=== PATIENT | male | born 1965 | race Caucasian/White ===

== ENCOUNTER 2017-01-14 22:36 | Observation (INO) ==
[2017-01-14] MEDS ORDERED: 0.9 % Sodium Chloride 1,000 ML IVC ONE (23:53)
[2017-01-15 00:36] LABS: Basophils % 0.3 %; Hematocrit 37.9 % (37.5-50.1); Hemoglobin 13.9 g/dL (12.9-16.9); Immature Granulocytes % 3.6 % (0-4); Lymphocytes # 1.4 K/mcL (0.6-4.6); Lymphocytes % 10.2 %; Mean Corpuscular HGB Conc 36.7 g/dL (31.6-35.5); Mean Corpuscular Hemoglobin 29.4 pg (28.0-33.3); Mean Corpuscular Volume 80.3 fL (83.0-100.0); Mean Platelet Volume 10.4 fL (9.4-12.4); Monocytes # 1.2 K/mcL (0.0-1.3); Monocytes % 8.6 %; Neutrophils # 10.7 K/mcL (1.6-8.9); Platelet Count 143 K/mcL (140-400); Red Blood Count 4.72 M/mcL (4.19-5.50); Red Cell Distribution Width 13.5 % (11.5-14.5); Segmented Neutrophils % 77.3 %
[2017-01-15 00:46] LABS: Alanine Aminotransferase 45 Units/L (0-55); Albumin 2.8 g/dL (3.5-5.0); Alkaline Phosphatase 90 Units/L (38-126); Aspartate Amino Transferase 22 Units/L (5-34); BUN/Creatinine Ratio 41 (6-26); Bilirubin,Total 0.4 mg/dL (0.2-1.2); Blood Urea Nitrogen 27 mg/dL (8-26); Calcium 8.8 mg/dL (8.6-10.8); Carbon Dioxide 22 mEq/L (19-29); Chloride 90 mEq/L (98-109); Globulin 2.9 g/dL (2.4-3.5); Glucose 240 mg/dL (70-99); Osmolality,Calculated 273 (280-300); Potassium 4.3 mEq/L (3.5-4.5); Sodium 125 mEq/L (136-145); Total Protein 5.7 g/dL (6.0-8.3); eGFR For African Americans > 60 (> 60); eGFR For Non-African Americans > 60 (> 60)
[2017-01-15 01:04] LABS: Beta-Hydroxybutyric Acid 0.37 mmol/L (0.02-0.27)
[2017-01-15 01:06] LABS: Bilirubin,Urine Negative (Negative); Blood,Urine Negative (Negative); Clarity,Urine Clear (Clear); Color,Urine Yellow (Yellow); Glucose,Urine (UA) 500 mg/dL (Normal); Ketones,Urine 15 mg/dL (Negative); Leukocyte Esterase,Urine Negative (Negative); Nitrite,Urine Negative (Negative); Protein,Urine 30 mg/dL (Neg-Trace); Urobilinogen,Urine Normal (Normal)
[2017-01-15 01:16] LABS: Squamous Epithelial Cell,Urine Few per lpf (None-Few)
--- NOTE | 2017-01-15 01:30 | Emergency Department Note ---
Disposition Clinical Impression: Hyponatremia, Dehydration Disposition: Admitted As Inpatient Condition: Serious General Adult HPI - General Chief complaint: ED General Medical Stated complaint: DKA Starting Time Seen by Provider: 01/14/17 23:15 Source: patient, family Mode of arrival: wheelchair Limitations: no limitations Nursing Notes Reviewed: Yes Vital Signs Reviewed: Yes - History of Present Illness HPI Narrative: 51-year-old male presents to the ear complaint generalized weakness place was concerned that he is has poor by mouth intake smell ketones on his Kretzer's concern about DKA. Patient is not a type I diabetic nor does he take insulin. 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 Patient has undergone radiation and chemotherapy.. 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 Patient has also had hyponatremia secondary to this. Patient has been very sleepy and decreased by mouth intake. Patient denies any pain. Pt Subjective Complaint: weakness Onset (ago): week(s) (1) Pain Scale: 0 - Related Data Home Medications Medication Instructions Recorded Confirmed Aspirin Enteric Coated [Aspirin EC] 81 mg PO DAILY 11/03/16 01/15/17 GlipiZIDE [Glucotrol] 5 mg PO BIDWM 11/03/16 01/15/17 Metformin HCl [Metformin HCl ER] 1,000 mg PO BID 11/03/16 01/15/17 Pravastatin Sodium [Pravachol] 40 mg PO DAILY 11/03/16 01/15/17 Carvedilol [Coreg] 25 mg PO BID 11/18/16 01/15/17 Dexamethasone [Decadron] 6 mg PO BID 01/11/17 01/15/17 GlipiZIDE [Glipizide ER] 20 mg PO DAILY 01/11/17 01/15/17 Omeprazole [PriLOSEC] 20 mg PO DAILY 01/11/17 01/15/17 Ondansetron [Zofran] 8 mg PO TID 01/11/17 01/15/17 Citalopram Hydrobromide 10 mg PO DAILY 01/14/17 01/15/17 [Citalopram HBr] LevETIRAcetam [Keppra] 750 mg PO BID 01/14/17 01/15/17 Magic Mouthwash [Magic Mouthwash 5 ml PO QID 01/14/17 01/15/17 BLM] Multivitamin [Multivitamins] 1 each PO DAILY 01/14/17 01/15/17 Nystatin [Nystatin Suspension] 1 / PO Q8H 01/14/17 01/15/17 OxyCODONE/APAP 5/325 [Percocet 1 - 2 each PO Q4HR PRN 01/14/17 01/15/17 5/325 MG] Prochlorperazine Maleate 10 mg PO Q6HR PRN 01/14/17 01/15/17 [Compazine] Sodium Chloride 1 gm PO BID 01/14/17 01/15/17 Valsartan/Hydrochlorothiazide 1 each PO DAILY 01/14/17 01/15/17 [Diovan Hct 160-25 mg Tablet] Previous Rx's Medication Instructions Recorded Mupirocin [Bactroban Oint] 1 appl TP BID #1 tube 01/11/17 Allergies Allergy/AdvReac Type Severity Reaction Status Date / Time No Known Allergies Allergy Verified 01/14/17 23:17 All systems ED: reviewed and negative except as stated. Constitutional: Reports: weakness. Denies: fever, chills Cardiovascular: Denies: chest pain, palpitations Respiratory: Denies: cough Gastrointestinal: Denies: abdominal pain, nausea, vomiting Neurological: Reports: weakness. Denies: headache, numbness, paresthesias Past Medical History - Past Medical History Attestation: Yes The following information was validated with the patient. Source: patient, nursing notes reviewed Medical history: Reports: diabetes, hypertension, other Psychiatric history: Reports: no psych history - Social History Smoking Status: Never smoker Smokeless Tobacco Status: No Alcohol use: Reports: none Drug use: Reports: none Physical Exam - General Limitations: no limitations General appearance: alert, in no apparent distress - Head Head exam: atraumatic, normocephalic - Eye Eye exam: Present: PERRL, EOMI. Absent: conjunctival injection - ENT ENT exam: normal oropharynx, mucous membranes dry - Neck Neck exam: Present: normal inspection, full ROM - Expanded Neck Exam Neck exam focused ED: Absent: JVD, carotid bruit - Chest Chest inspection: Present: normal inspection, symmetric chest wall rise - Respiratory Respiratory exam: Present: normal lung sounds bilaterally - Cardiovascular Cardiovascular exam: Present: regular rate, normal rhythm, normal heart sounds - Abdominal Exam Abdominal exam: Present: soft, Non-Tender, normal bowel sounds - Extremities Exam Extremities exam: Present: normal inspection, full ROM, normal capillary refill. Absent: joint swelling - Neurological Exam Neurological exam: Present: alert, oriented X3, CN II-XII intact. Absent: normal gait, motor sensory deficit - Skin Skin exam: Present: warm, dry, intact, normal color Course Course Narrative: Patient was given IV fluids with significant improvement of mentation. Patient' s sodium is low admitted for further observation and hydration. Vital Signs Temperature 97.9 F 01/14/17 23:03 Pulse Rate 75 01/14/17 23:03 Respiratory Rate 16 01/14/17 23:03 Blood Pressure 122/77 01/14/17 23:03 O2 Sat by Pulse Oximetry 94 L 01/14/17 23:03 Temperature 98.8 F 01/15/17 07:31 Pulse Rate 72 01/15/17 07:31 Respiratory Rate 18 01/15/17 07:31 Blood Pressure 163/93 01/15/17 07:31 O2 Sat by Pulse Oximetry 94 L 01/15/17 07:31 Oxygen Delivery Oxygen Delivery Room Air Medical Decision Making - Lab Data Lab results reviewed: Yes I reviewed the patient's lab results. Lab results narrative: Issue with mild leukocytosis at 12,000 patient has been on steroids. Patient with hyponatremia at 124. Results discussed with family and patient Result diagrams: 01/15/17 05:45 01/15/17 05:45 Lab Results 01/14/17 01/14/17 01/14/17 Range/Units 00:26 00:26 22:57 WBC 13.8 H (4.3-11.1) K/mcL RBC 4.72 (4.19-5.50) M/mcL Hgb 13.9 (12.9-16.9) g/dL Hct 37.9 (37.5-50.1) % MCV 80.3 L (83.0-100.0) fL MCH 29.4 (28.0-33.3) pg MCHC 36.7 H (31.6-35.5) g/dL RDW 13.5 (11.5-14.5) % Plt Count 143 (140-400) K/mcL MPV 10.4 (9.4-12.4) fL Immature Gran % 3.6 (0-4) % Seg Neutrophils % 77.3 % Lymphocytes % 10.2 % Monocytes % 8.6 % Eosinophils % 0.0 % Basophils % 0.3 % Neutrophils # 10.7 H (1.6-8.9) K/mcL Lymphocytes # 1.4 (0.6-4.6) K/mcL Monocytes # 1.2 (0.0-1.3) K/mcL Eosinophils # 0.0 (0.0-0.6) K/mcL Basophils # 0.0 (0.0-0.2) K/mcL Sodium 125 L (136-145) mEq/L Potassium 4.3 (3.5-4.5) mEq/L Chloride 90 L (98-109) mEq/L Carbon Dioxide 22 (19-29) mEq/L BUN 27 H (8-26) mg/dL Creatinine 0.66 L (0.72-1.25) mg/dL Est GFR ( Amer) > 60 (> 60) Est GFR (Non-Af Amer) > 60 (> 60) BUN/Creatinine Ratio 41 H (6-26) Glucose 240 H (70-99) mg/dL POC Glucose 250 H (58-89) Calculated Osmolality 273 L (280-300) Calcium 8.8 (8.6-10.8) mg/dL Total Bilirubin 0.4 (0.2-1.2) mg/dL AST 22 (5-34) Units/L ALT 45 (0-55) Units/L Alkaline Phosphatase 90 (38-126) Units/L Serum Total Protein 5.7 L (6.0-8.3) g/dL Albumin 2.8 L (3.5-5.0) g/dL Globulin 2.9 (2.4-3.5) g/dL Albumin/Globulin Ratio 1.0 L (1.1-2.2) Beta-Hydroxybutyric Acd 0.37 H (0.02-0.27) mmol/L Urine Color (Yellow) Urine Clarity (Clear) Urine pH (5.0-8.0) pH Units Ur Specific Point Clear (1.010-1.025) Urine Protein (Neg-Trace) mg/dL Urine Glucose (UA) (Normal) mg/dL Urine Ketones (Negative) mg/dL Urine Blood (Negative) Urine Nitrite (Negative) Urine Bilirubin (Negative) Urine Urobilinogen (Normal) mg/dL Ur Leukocyte Esterase (Negative) Urine Microscopic WBC Ur Squamous Epith Cells (None-Few) per lpf Ur Culture Indicated? (NO) 01/15/17 Range/Units 00:54 WBC (4.3-11.1) K/mcL RBC (4.19-5.50) M/mcL Hgb (12.9-16.9) g/dL Hct (37.5-50.1) % MCV (83.0-100.0) fL MCH (28.0-33.3) pg MCHC (31.6-35.5) g/dL RDW (11.5-14.5) % Plt Count (140-400) K/mcL MPV (9.4-12.4) fL Immature Gran % (0-4) % Seg Neutrophils % % Lymphocytes % % Monocytes % % Eosinophils % % Basophils % % Neutrophils # (1.6-8.9) K/mcL Lymphocytes # (0.6-4.6) K/mcL Monocytes # (0.0-1.3) K/mcL Eosinophils # (0.0-0.6) K/mcL Basophils # (0.0-0.2) K/mcL Sodium (136-145) mEq/L Potassium (3.5-4.5) mEq/L Chloride (98-109) mEq/L Carbon Dioxide (19-29) mEq/L BUN (8-26) mg/dL Creatinine (0.72-1.25) mg/dL Est GFR ( Amer) (> 60) Est GFR (Non-Af Amer) (> 60) BUN/Creatinine Ratio (6-26) Glucose (70-99) mg/dL POC Glucose (58-89) Calculated Osmolality (280-300) Calcium (8.6-10.8) mg/dL Total Bilirubin (0.2-1.2) mg/dL AST (5-34) Units/L ALT (0-55) Units/L Alkaline Phosphatase (38-126) Units/L Serum Total Protein (6.0-8.3) g/dL Albumin (3.5-5.0) g/dL Globulin (2.4-3.5) g/dL Albumin/Globulin Ratio (1.1-2.2) Beta-Hydroxybutyric Acd (0.02-0.27) mmol/L Urine Color Yellow (Yellow) Urine Clarity Clear (Clear) Urine pH 6.0 (5.0-8.0) pH Units Ur Specific Point Clear 1.020 (1.010-1.025) Urine Protein 30 H (Neg-Trace) mg/dL Urine Glucose (UA) 500 H (Normal) mg/dL Urine Ketones 15 H (Negative) mg/dL Urine Blood Negative (Negative) Urine Nitrite Negative (Negative) Urine Bilirubin Negative (Negative) Urine Urobilinogen Normal (Normal) mg/dL Ur Leukocyte Esterase Negative (Negative) Urine Microscopic WBC Test Not Performed Ur Squamous Epith Cells Few (None-Few) per lpf Ur Culture Indicated? NO (NO)
[2017-01-15] MEDS ORDERED: Naloxone 0.4 MG/ML INJ IVP PRN (03:43)
[2017-01-15] MEDS: 0.9 % Sodium Chloride 1,000 ML IVC SCH ×2 (04:05→12:27)
[2017-01-15] MEDS: Benzonatate 100 MG CAPSULE PO PRN ×2 (04:18→21:48)
[2017-01-15] MEDS ORDERED: Ondansetron ODT 4 MG TAB.RAPDIS PO PRN (04:36)
[2017-01-15 06:22] LABS: BUN/Creatinine Ratio 31 (6-26); Blood Urea Nitrogen 22 mg/dL (8-26); Calcium 8.2 mg/dL (8.6-10.8); Carbon Dioxide 20 mEq/L (19-29); Chloride 92 mEq/L (98-109); Glucose 336 mg/dL (70-99); Osmolality,Calculated 275 (280-300); Potassium 4.3 mEq/L (3.5-4.5); Sodium 124 mEq/L (136-145); eGFR For African Americans > 60 (> 60); eGFR For Non-African Americans > 60 (> 60)
[2017-01-15 06:26] LABS: Basophils % 0.3 %; Hematocrit 35.4 % (37.5-50.1); Immature Granulocytes % 4.1 % (0-4); Lymphocytes # 1.4 K/mcL (0.6-4.6); Lymphocytes % 11.2 %; Mean Corpuscular HGB Conc 36.7 g/dL (31.6-35.5); Mean Corpuscular Hemoglobin 29.7 pg (28.0-33.3); Mean Corpuscular Volume 80.8 fL (83.0-100.0); Mean Platelet Volume 10.2 fL (9.4-12.4); Monocytes # 1.1 K/mcL (0.0-1.3); Monocytes % 8.4 %; Platelet Count 136 K/mcL (140-400); Red Blood Count 4.38 M/mcL (4.19-5.50); Red Cell Distribution Width 13.6 % (11.5-14.5)
[2017-01-15 06:35] LABS: Neutrophils # 9.6 K/mcL (1.6-8.9)
[2017-01-15] MEDS: Nystatin SUSP 5 ML UD.LIQ PO SCH ×3 (06:59→21:48)
[2017-01-15] MEDS ORDERED: *HR* GlipiZIDE 5 MG TABLET PO SCH (08:00)
[2017-01-15] MEDS: LevETIRAcetam 250 MG TABLET PO SCH ×2 (08:42→21:47)
[2017-01-15] MEDS: Multivit/Ca/Min/Fe/FA 1 TAB TABLET PO SCH (08:43)
[2017-01-15] MEDS: *HR* GlipiZIDE XL (24 HR) 10 MG TABLET PO SCH (08:43)
[2017-01-15] MEDS: Aspirin Enteric Coated 81 MG Tablet PO SCH (08:43)
[2017-01-15] MEDS: *HR* Metformin 500 MG TABLET PO SCH ×2 (08:44→17:51)
[2017-01-15] MEDS ORDERED: Magic Mouthwash 10 ML UD Cup PO SCH (09:00)
[2017-01-15] MEDS ORDERED: Ondansetron ODT 4 MG TAB.RAPDIS PO SCH (09:00)
[2017-01-15] MEDS ORDERED: Valsartan 160 MG TABLET PO SCH (09:00)
[2017-01-15] MEDS ORDERED: *HR* Dextrose 50 % in Water (Syg) 50 ML SYRINGE IVP PRN (12:38)
[2017-01-15] MEDS ORDERED: Dextrose Gel 15 GM PO PRN ×2 (12:38)
[2017-01-15] MEDS ORDERED: D5% in Water 1,000 ML IVC PRN (12:38)
--- NOTE | 2017-01-15 13:30 | Internal Med History&Physical ---
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 He has undergone total brain radiation and chemotherapy. He is on Decadron so this could probably be raising his blood sugars (2) Hyponatremia Current visit: Yes Status: Acute Hyponatremia is also being addressed to his increased slightly (3) Dehydration Current visit: Yes Status: Acute I think that dehydration spitting addressed. Internal Medicine - H&P: HPI Admitted From: Emergency Dept Plans for Post Hospital Care: Home History of present illness: Mr. 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.) Psychiatric history: no psych history - Social History Smoking Status: Never smoker Smokeless Tobacco Status: No Alcohol use: none Drug use: none Internal Medicine - H&P: Meds Aspirin Enteric Coated [Aspirin EC] 81 mg PO DAILY 11/03/16 [History] GlipiZIDE [Glucotrol] 5 mg PO BIDWM 11/03/16 [History] Metformin HCl [Metformin HCl ER] 1,000 mg PO BID 11/03/16 [History] Pravastatin Sodium [Pravachol] 40 mg PO DAILY 11/03/16 [History] Carvedilol [Coreg] 25 mg PO BID 11/18/16 [History] Dexamethasone [Decadron] 6 mg PO BID 01/11/17 [History] GlipiZIDE [Glipizide ER] 20 mg PO DAILY 01/11/17 [History] Mupirocin [Bactroban Oint] 1 appl TP BID #1 tube 01/11/17 [Rx] Omeprazole [PriLOSEC] 20 mg PO DAILY 01/11/17 [History] Ondansetron [Zofran] 8 mg PO TID 01/11/17 [History] Citalopram Hydrobromide [Citalopram HBr] 10 mg PO DAILY 01/14/17 [History] LevETIRAcetam [Keppra] 750 mg PO BID 01/14/17 [History] Magic Mouthwash [Magic Mouthwash BLM] 5 ml PO QID 01/14/17 [History] Multivitamin [Multivitamins] 1 each PO DAILY 01/14/17 [History] Nystatin [Nystatin Suspension] 1 / PO Q8H 01/14/17 [History] OxyCODONE/APAP 5/325 [Percocet 5/325 MG] 1 - 2 each PO Q4HR PRN 01/14/17 [ History] Prochlorperazine Maleate [Compazine] 10 mg PO Q6HR PRN 01/14/17 [History] Sodium Chloride 1 gm PO BID 01/14/17 [History] Valsartan/Hydrochlorothiazide [Diovan Hct 160-25 mg Tablet] 1 each PO DAILY [History] Allergies No Known Allergies Allergy (Verified 01/14/17 23:17) All Systems PM: A 10-system review of systems was performed and is negative for pertinent findings except as documented above in the HPI. - Constitutional Constitutional: fatigue, weakness - EENT Eyes: irritation Nose, mouth and throat: mouth lesions, mouth pain Additional comments: Patient is undergoing chemotherapy and now radiation therapy. He has some lesions in the mouth is rough is quite sore. He is using Magic mouthwash right now. drinking liquids by we have encouraged to take a soft diet as tolerated - Constitutional Vitals: Temp Pulse Resp BP Pulse Ox 97.4 F L 58 18 155/88 96 01/15/17 12:49 01/15/17 12:49 01/15/17 12:49 01/15/17 12:49 01/15/17 12:49 - Head Head exam: Present: atraumatic, normal inspection, normocephalic - Expanded Eye Exam sclera: bilateral: exudate - ENT Additional comments: Mr. Chaney has 2 areas on his nose that do not seem to be related to wearing glasses. There is possible staph infection I am going to use Bactroban ointment on those. - Neck Neck exam general surgery: Present: supple, trachea midline. Absent: lymphadenopathy - Respiratory Respiratory exam: Present: CTAB. Absent: accessory muscle use, rales, rhonchi, wheezes - Cardiovascular Cardiovascular exam: Present: RRR, +S1, +S2. Absent: diastolic murmur, gallop, rubs, systolic murmur - GI/Abdominal GI/Abdominal exam: Present: normal bowel sounds, soft, no peritoneal signs. Absent: distended, tenderness Internal Med - H&P Results - Labs CBC & Chem 7: 01/15/17 05:45 01/15/17 05:45 Labs: Short CBC 01/15/17 Range/Units 05:45 WBC 12.6 H (4.3-11.1) K/mcL Hgb 13.0 (12.9-16.9) g/dL Hct 35.4 L (37.5-50.1) % Plt Count 136 L (140-400) K/mcL Neutrophils # 9.6 H (1.6-8.9) K/mcL BMP 01/15/17 05:45 Sodium 124 L Potassium 4.3 Chloride 92 L Carbon Dioxide 20 BUN 22 Creatinine 0.70 L Glucose 336 H Calcium 8.2 L Patient has a low sodium when she was noted. The BUN is 22 and we need to just watch that. He is diabetic and has an elevated glucose. But is refusing to use the sliding scale insulin and the by mouth meds are not quite getting it. - VTE Documentation of Mechanical Device: Graduated compression elastic hosiery
[2017-01-15] MEDS: *HR* OxyCODONE/APAP 5/325 TABLET PO PRN ×2 (15:17→21:49)
[2017-01-15] MEDS: Gentamicin OPTH Soln 5 ML BOTTLE BOTH EYES SCH ×3 (15:19→21:46)
[2017-01-15] MEDS: Magic Mouthwash 10 ML UD Cup PO SCH ×3 (15:19→21:47)
[2017-01-15] MEDS ORDERED: Melatonin 3 MG TABLET PO PRN (16:54)
[2017-01-15] MEDS: Insulin LISPRO 300 UNITS/3 ML VIAL SQ SCH (17:52)
[2017-01-15] MEDS ORDERED: Insulin LISPRO 300 UNITS/3 ML VIAL SQ SCH (21:00)
[2017-01-16] MEDS: 0.9 % Sodium Chloride 1,000 ML IVC SCH ×2 (05:58→14:13)
[2017-01-16] MEDS: Nystatin SUSP 5 ML UD.LIQ PO SCH (05:59)
[2017-01-16] MEDS: *HR* OxyCODONE/APAP 5/325 TABLET PO PRN ×2 (06:00→14:14)
[2017-01-16] MEDS: *HR* GlipiZIDE XL (24 HR) 10 MG TABLET PO SCH (07:57)
[2017-01-16] MEDS: Aspirin Enteric Coated 81 MG Tablet PO SCH (07:58)
[2017-01-16] MEDS: LevETIRAcetam 250 MG TABLET PO SCH (07:59)
[2017-01-16] MEDS: Multivit/Ca/Min/Fe/FA 1 TAB TABLET PO SCH (07:59)
[2017-01-16] MEDS: *HR* Metformin 500 MG TABLET PO SCH (07:59)
[2017-01-16] MEDS: Gentamicin OPTH Soln 5 ML BOTTLE BOTH EYES SCH ×2 (08:00→13:56)
[2017-01-16] MEDS: Magic Mouthwash 10 ML UD Cup PO SCH ×2 (08:00→13:56)
[2017-01-16] MEDS: Insulin LISPRO 300 UNITS/3 ML VIAL SQ SCH ×2 (08:01→12:29)
[2017-01-16 10:57] VITALS: BP 149/72
--- NOTE | 2017-01-16 15:16 | Discharge Summary ---
Date of Encounter: 01/15/17 Time of Encounter: 15:00 - Discharge Diagnosis (1) Astrocytoma brain tumor Priority: Primary Status: Acute Comments: The patient will need some mild swelling time for strengthening. He was unable to move out of the bathroom without assistance. (2) Hyponatremia Priority: Secondary Status: Acute Comments: I will recheck Chem-7 in the a.m. (3) Dehydration Priority: Primary Status: Acute Comments: Renal function seems - Discharge Medications Home Medications: Aspirin Enteric Coated [Aspirin EC] 81 mg PO DAILY 11/03/16 [History] GlipiZIDE [Glucotrol] 5 mg PO BIDWM 11/03/16 [History] Metformin HCl [Metformin HCl ER] 1,000 mg PO BID 11/03/16 [History] Pravastatin Sodium [Pravachol] 40 mg PO DAILY 11/03/16 [History] Carvedilol [Coreg] 25 mg PO BID 11/18/16 [History] Dexamethasone [Decadron] 6 mg PO BID 01/11/17 [History] GlipiZIDE [Glipizide ER] 20 mg PO DAILY 01/11/17 [History] Mupirocin [Bactroban Oint] 1 appl TP BID #1 tube 01/11/17 [Rx] Omeprazole [PriLOSEC] 20 mg PO DAILY 01/11/17 [History] Ondansetron [Zofran] 8 mg PO TID 01/11/17 [History] Citalopram Hydrobromide [Citalopram HBr] 10 mg PO DAILY 01/14/17 [History] LevETIRAcetam [Keppra] 750 mg PO BID 01/14/17 [History] Magic Mouthwash [Magic Mouthwash BLM] 5 ml PO QID 01/14/17 [History] Multivitamin [Multivitamins] 1 each PO DAILY 01/14/17 [History] Nystatin [Nystatin Suspension] 1 / PO Q8H 01/14/17 [History] OxyCODONE/APAP 5/325 [Percocet 5/325 MG] 1 - 2 each PO Q4HR PRN 01/14/17 [ History] Prochlorperazine Maleate [Compazine] 10 mg PO Q6HR PRN 01/14/17 [History] Sodium Chloride 1 gm PO BID 01/14/17 [History] Valsartan/Hydrochlorothiazide [Diovan Hct 160-25 mg Tablet] 1 each PO DAILY [History] Allergies/Adverse Reactions: Allergies No Known Allergies Allergy (Verified 01/14/17 23:17) Date of admission: 01/15/17 01:28 Primary care physician: Nkechi Torres Consults: 01/15/17 03:56 Consult to Wound Care [CONS] Routine Reason for Consult: open areas on the nose and the corners of both eyes. Patient states they're painful. Has had recent radiation treatments. Call Completed: No 01/15/17 13:21 Consult to Physical Therapy [CONS] Routine Comment: Evaluate, develop and implement POC 01/15/17 13:22 Consult to Occupational Therapy [CONS] Routine Comment: Evaluate, develop and implement POC Discharging clinician: Tony Reyez Anticipated date of discharge: 01/16/17 - Patient Status Disposition: Transfer Hospital Swing Bed Condition: Fair Functional capacity at discharge: uses cane/walker - Discharge Instructions Follow Up With: Nkechi Torres, [employer] [Primary Care Provider] - Forms: ED Satisfaction Letter, Work/School Release - Diet and Activity Activity: ambulate only with your walker (Patient needs standby assistance) Interval History: Patient was admitted to observation due to hypernatremia hypotension following weakness and the patient has a history of brain tumor Hospital course: Mr. Chaney is a 51 year old male Patient's hydration status improved he is doing better was seen by PT and OT. Recommended swing bed to increase strength and endurance - Time Spent with Patient Total time spent providing and/or coordinating discharge services: Less than 30 minutes - Constitutional Vitals: Temp Pulse Resp BP Pulse Ox 98.4 F 85 18 149/72 93 L 01/16/17 10:56 01/16/17 13:05 01/16/17 13:05 01/16/17 13:05 01/16/17 13:05 - Head Head exam: Present: atraumatic, normal inspection, normocephalic - Neck Neck exam general surgery: Present: supple, trachea midline. Absent: lymphadenopathy - Respiratory Respiratory exam: Present: CTAB. Absent: accessory muscle use, rales, rhonchi, wheezes - Cardiovascular Cardiovascular exam: Present: RRR, +S1, +S2. Absent: diastolic murmur, gallop, rubs, systolic murmur - VTE Documentation of Mechanical Device: Graduated compression elastic hosiery
== END 2017-01-16 15:40 | disposition other institution (70) ==
LOC: INPGRE 22:36 → EMEROOGRE 22:36 → INPGRE 01-15 01:54
PROVIDERS: ADMIT Internal Medicine; ATTEND Internal Medicine

== ENCOUNTER 2017-01-16 14:18 | Inpatient (IN) ==
[2017-01-16] MEDS ORDERED: Dextrose Gel 15 GM PO PRN ×2 (16:22)
[2017-01-16] MEDS ORDERED: *HR* Dextrose 50 % in Water (Syg) 50 ML SYRINGE IVP PRN (16:22)
[2017-01-16] MEDS ORDERED: D5% in Water 1,000 ML IVC PRN (16:22)
[2017-01-16] MEDS ORDERED: Nystatin SUSP 5 ML UD.LIQ PO SCH (16:30)
[2017-01-16] MEDS: *HR* OxyCODONE/APAP 5/325 TABLET PO PRN ×2 (19:03→20:20)
[2017-01-16] MEDS: *HR* Metformin 500 MG TABLET PO SCH (19:03)
[2017-01-16] MEDS: 0.9 % Sodium Chloride 1,000 ML IVC SCH (19:04)
[2017-01-16] MEDS: Insulin LISPRO 300 UNITS/3 ML VIAL SQ SCH ×2 (19:04→20:59)
[2017-01-16] MEDS: Magic Mouthwash 10 ML UD Cup PO SCH ×2 (19:05→20:19)
[2017-01-16] MEDS ORDERED: *HR* OxyCODONE/APAP 5/325 TABLET PO PRN (20:08)
[2017-01-16] MEDS: LevETIRAcetam 250 MG TABLET PO SCH (20:19)
[2017-01-16] MEDS: Nystatin SUSP 5 ML UD.LIQ PO SCH (20:59)
[2017-01-16] MEDS: Gentamicin OPTH Soln 5 ML BOTTLE BOTH EYES SCH (20:59)
[2017-01-16] MEDS ORDERED: Gentamicin OPTH Soln 5 ML BOTTLE RIGHT EYE SCH (21:00)
[2017-01-16] MEDS ORDERED: Ondansetron ODT 4 MG TAB.RAPDIS PO SCH (21:00)
[2017-01-16] MEDS ORDERED: Gentamicin OPTH Soln 5 ML BOTTLE LEFT EYE SCH (21:00)
[2017-01-17] MEDS: 0.9 % Sodium Chloride 1,000 ML IVC SCH ×2 (07:42→16:17)
[2017-01-17] MEDS: Insulin LISPRO 300 UNITS/3 ML VIAL SQ SCH ×4 (08:56→20:35)
[2017-01-17] MEDS: *HR* Metformin 500 MG TABLET PO SCH ×2 (08:57→17:50)
[2017-01-17] MEDS: *HR* GlipiZIDE XL (24 HR) 10 MG TABLET PO SCH (08:57)
[2017-01-17] MEDS: Multivit/Ca/Min/Fe/FA 1 TAB TABLET PO SCH (08:57)
[2017-01-17] MEDS: Aspirin Enteric Coated 81 MG Tablet PO SCH (08:58)
[2017-01-17] MEDS: Nystatin SUSP 5 ML UD.LIQ PO SCH ×3 (08:58→20:51)
[2017-01-17] MEDS: Gentamicin OPTH Soln 5 ML BOTTLE BOTH EYES SCH ×4 (08:58→20:51)
[2017-01-17] MEDS: Valsartan 160 MG TABLET PO SCH (09:05)
[2017-01-17] MEDS: LevETIRAcetam 250 MG TABLET PO SCH ×2 (09:06→20:52)
[2017-01-17] MEDS: Magic Mouthwash 10 ML UD Cup PO SCH ×4 (09:10→20:50)
[2017-01-17 09:58] LABS: BUN/Creatinine Ratio 27 (6-26); Blood Urea Nitrogen 18 mg/dL (8-26); Calcium 8.2 mg/dL (8.6-10.8); Carbon Dioxide 27 mEq/L (19-29); Chloride 93 mEq/L (98-109); Glucose 225 mg/dL (70-99); Osmolality,Calculated 277 (280-300); Potassium 4.4 mEq/L (3.5-4.5); Sodium 129 mEq/L (136-145); eGFR For African Americans > 60 (> 60); eGFR For Non-African Americans > 60 (> 60)
--- NOTE | 2017-01-17 13:51 | Internal Med History&Physical ---
Date of Encounter: 01/17/17 Time of Encounter: 14:00 Assessment and Plan (1) Hyponatremia Current visit: No Status: Acute Improving on a daily basis. (2) Dehydration Current visit: No Status: Acute Also improving daily (3) Astrocytoma brain tumor Current visit: No Status: Acute A bed patient is had radiation and chemotherapy. Internal Medicine - H&P: HPI Chief complaint: This patient was diagnosed with an extensive penetrating astrocytoma. He h Admitted From: Emergency Dept Plans for Post Hospital Care: Home History of present illness: Mr. Chaney is a 51 year old male who suffered a brain tumor and was brought in due to generalized weakness. Past Med Surg Social Fam HX - Past Medical History Medical history: cancer (Patient has an extensive penetrating astrocytoma malignancy.), diabetes, hypertension, other Psychiatric history: no psych history - Social History Smoking Status: Never smoker Smokeless Tobacco Status: No Alcohol use: none Drug use: none Internal Medicine - H&P: Meds Aspirin Enteric Coated [Aspirin EC] 81 mg PO DAILY 11/03/16 [History] GlipiZIDE [Glucotrol] 5 mg PO BIDWM 11/03/16 [History] Metformin HCl [Metformin HCl ER] 1,000 mg PO BID 11/03/16 [History] Pravastatin Sodium [Pravachol] 40 mg PO DAILY 11/03/16 [History] Carvedilol [Coreg] 25 mg PO BID 11/18/16 [History] Dexamethasone [Decadron] 6 mg PO BID 01/11/17 [History] GlipiZIDE [Glipizide ER] 20 mg PO DAILY 01/11/17 [History] Mupirocin [Bactroban Oint] 1 appl TP BID #1 tube 01/11/17 [Rx] Omeprazole [PriLOSEC] 20 mg PO DAILY 01/11/17 [History] Ondansetron [Zofran] 8 mg PO TID 01/11/17 [History] Citalopram Hydrobromide [Citalopram HBr] 10 mg PO DAILY 01/14/17 [History] LevETIRAcetam [Keppra] 750 mg PO BID 01/14/17 [History] Magic Mouthwash [Magic Mouthwash BLM] 5 ml PO QID 01/14/17 [History] Multivitamin [Multivitamins] 1 each PO DAILY 01/14/17 [History] Nystatin [Nystatin Suspension] 1 / PO Q8H 01/14/17 [History] OxyCODONE/APAP 5/325 [Percocet 5/325 MG] 1 - 2 each PO Q4HR PRN 01/14/17 [ History] Prochlorperazine Maleate [Compazine] 10 mg PO Q6HR PRN 01/14/17 [History] Sodium Chloride 1 gm PO BID 01/14/17 [History] Valsartan/Hydrochlorothiazide [Diovan Hct 160-25 mg Tablet] 1 each PO DAILY [History] Allergies No Known Allergies Allergy (Verified 01/14/17 23:17) All Systems PM: A 10-system review of systems was performed and is negative for pertinent findings except as documented above in the HPI. - Constitutional Vitals: Temp Pulse Resp BP Pulse Ox 98.3 F 72 18 147/80 94 L 01/17/17 07:45 01/17/17 12:51 01/17/17 07:45 01/17/17 07:45 01/17/17 07:45 - Head Head exam: Present: atraumatic, normal inspection, normocephalic - Neck Neck exam general surgery: Present: supple, trachea midline. Absent: lymphadenopathy - Respiratory Respiratory exam: Present: CTAB. Absent: accessory muscle use, rales, rhonchi, wheezes - Cardiovascular Cardiovascular exam: Present: RRR, +S1, +S2. Absent: diastolic murmur, gallop, rubs, systolic murmur - GI/Abdominal GI/Abdominal exam: Present: normal bowel sounds, soft, no peritoneal signs. Absent: distended, tenderness Internal Med - H&P Results - Labs CBC & Chem 7: 01/17/17 08:55 Labs: BMP 01/17/17 08:55 Sodium 129 L Potassium 4.4 Chloride 93 L Carbon Dioxide 27 BUN 18 Creatinine 0.66 L Glucose 225 H Calcium 8.2 L Sodium was lower so it is improving. - VTE Documentation of Mechanical Device: Graduated compression elastic hosiery
[2017-01-18] MEDS: 0.9 % Sodium Chloride 1,000 ML IVC SCH ×3 (00:23→09:00)
[2017-01-18] MEDS: *HR* GlipiZIDE XL (24 HR) 10 MG TABLET PO SCH (08:30)
[2017-01-18] MEDS: *HR* OxyCODONE/APAP 5/325 TABLET PO PRN (08:30)
[2017-01-18] MEDS: Benzonatate 100 MG CAPSULE PO PRN ×2 (08:30→21:57)
[2017-01-18] MEDS: LevETIRAcetam 250 MG TABLET PO SCH ×2 (08:30→21:57)
[2017-01-18] MEDS: *HR* Metformin 500 MG TABLET PO SCH ×2 (08:31→16:56)
[2017-01-18] MEDS: Aspirin Enteric Coated 81 MG Tablet PO SCH (08:32)
[2017-01-18] MEDS: Multivit/Ca/Min/Fe/FA 1 TAB TABLET PO SCH (08:32)
[2017-01-18] MEDS: Valsartan 160 MG TABLET PO SCH (08:32)
[2017-01-18] MEDS: Magic Mouthwash 10 ML UD Cup PO SCH ×4 (08:33→21:56)
[2017-01-18] MEDS: Gentamicin OPTH Soln 5 ML BOTTLE BOTH EYES SCH ×4 (08:33→21:57)
[2017-01-18] MEDS: Insulin LISPRO 300 UNITS/3 ML VIAL SQ SCH ×4 (08:33→21:58)
[2017-01-18] MEDS: Nystatin SUSP 5 ML UD.LIQ PO SCH ×3 (08:34→22:01)
[2017-01-18 09:13] LABS: BUN/Creatinine Ratio 28 (6-26); Blood Urea Nitrogen 18 mg/dL (8-26); Calcium 8.3 mg/dL (8.6-10.8); Carbon Dioxide 27 mEq/L (19-29); Chloride 92 mEq/L (98-109); Glucose 175 mg/dL (70-99); Osmolality,Calculated 274 (280-300); Potassium 3.9 mEq/L (3.5-4.5); Sodium 129 mEq/L (136-145); eGFR For African Americans > 60 (> 60); eGFR For Non-African Americans > 60 (> 60)
--- NOTE | 2017-01-18 12:31 | Internal Med Progress Note ---
Date of Encounter: 01/18/17 Time of Encounter: 12:00 - Assessment and plan (1) Hyponatremia Current Visit: No Status: Acute Assessment and plan: Not completely corrected but adequate (2) Dehydration Current Visit: No Status: Acute Assessment and plan: Resolved (3) Astrocytoma brain tumor Current Visit: No Status: Acute Assessment and plan: Unfortunately the reason for rehabilitation - Time Spent With Patient less than 15 minutes - Subjective Interval history: Mr. Chaney is doing better today. She states his legs are still weak. Last night was a little better previous R he said he still cannot sleep so I am going to increase the Ambien she would - Constitutional Vitals: Temp Pulse Resp BP Pulse Ox 98.2 F 87 18 144/77 95 01/18/17 07:32 01/18/17 07:32 01/18/17 07:32 01/18/17 07:32 01/18/17 07:32 - Head Head exam: Present: atraumatic, normal inspection, normocephalic - Neck Neck exam general surgery: Present: supple, trachea midline. Absent: lymphadenopathy - Respiratory Respiratory exam: Present: CTAB. Absent: accessory muscle use, rales, rhonchi, wheezes - Cardiovascular Cardiovascular exam: Present: RRR, +S1, +S2. Absent: diastolic murmur, gallop, rubs, systolic murmur Internal Medicine: Result - Labs CBC & Chem 7: 01/18/17 08:28 Labs: BMP 01/18/17 08:28 Sodium 129 L Potassium 3.9 Chloride 92 L Carbon Dioxide 27 BUN 18 Creatinine 0.65 L Glucose 175 H Calcium 8.3 L Abdomen overall is improved in terms of his glucose and his sodium is been stable at 129. Potassium is okay - VTE Documentation of Mechanical Device: Graduated compression elastic hosiery Consult Discharge Plan - Plan Referrals: Nkechi Torres, [employer] [Primary Care Provider] -
[2017-01-19] MEDS: *HR* GlipiZIDE XL (24 HR) 10 MG TABLET PO SCH (08:11)
[2017-01-19] MEDS: Benzonatate 100 MG CAPSULE PO PRN ×2 (08:12→22:17)
[2017-01-19] MEDS: LevETIRAcetam 250 MG TABLET PO SCH ×2 (08:12→20:20)
[2017-01-19] MEDS: Multivit/Ca/Min/Fe/FA 1 TAB TABLET PO SCH (08:12)
[2017-01-19] MEDS: *HR* Metformin 500 MG TABLET PO SCH ×2 (08:13→16:54)
[2017-01-19] MEDS: Nystatin SUSP 5 ML UD.LIQ PO SCH ×3 (08:14→20:21)
[2017-01-19] MEDS: Magic Mouthwash 10 ML UD Cup PO SCH ×4 (08:14→20:21)
[2017-01-19] MEDS: Valsartan 160 MG TABLET PO SCH (08:16)
[2017-01-19] MEDS: Gentamicin OPTH Soln 5 ML BOTTLE BOTH EYES SCH ×4 (08:17→20:22)
[2017-01-19] MEDS: Insulin LISPRO 300 UNITS/3 ML VIAL SQ SCH ×4 (08:17→20:22)
[2017-01-19] MEDS: Aspirin Enteric Coated 81 MG Tablet PO SCH (08:17)
[2017-01-19] MEDS: *HR* OxyCODONE/APAP 5/325 TABLET PO PRN (20:19)
--- NOTE | 2017-01-19 23:04 | Internal Med Progress Note ---
Date of Encounter: 01/19/17 Time of Encounter: 23:02 - Assessment and plan (1) Astrocytoma brain tumor Current Visit: Yes Status: Acute Assessment and plan: PT OT working on improving endurance, strength. Unfortunately the reason for rehabilitation (2) Hyponatremia Current Visit: Yes Status: Chronic Assessment and plan: Not completely corrected but adequate (3) Dehydration Current Visit: Yes Status: Acute Assessment and plan: Resolved - Time Spent With Patient less than 15 minutes - Subjective Interval history: Slept better last night after increasing dose of Ambien. Still complains of mild dry cough. Still complains of generalized weakness. Pain under control. - Constitutional Vitals: Temp Pulse Resp BP Pulse Ox 98.2 F 79 16 120/84 95 01/19/17 18:50 01/19/17 18:50 01/19/17 18:50 01/19/17 18:50 01/19/17 18:50 General appearance: Present: cachectic, A&O X 3, pleasant - Respiratory Respiratory exam: Present: CTAB. Absent: accessory muscle use, rales, rhonchi, wheezes - Cardiovascular Cardiovascular exam: Present: RRR, +S1, +S2. Absent: diastolic murmur, gallop, rubs, systolic murmur - GI/Abdominal GI/Abdominal exam: Present: normal bowel sounds, soft, no peritoneal signs. Absent: distended, tenderness - Extremities Exam Extremities exam: Present: warm, radial pulses palpable and symetrical. Absent : calf tenderness, cyanotic, pedal edema - Neurological Exam Neurological exam: Present: CN II-XII intact, oriented X3, no focal deficits. Absent: pronater drift, facial droop, speech deficit Internal Medicine: Result - Labs CBC & Chem 7: 01/18/17 08:28 - VTE Documentation of Mechanical Device: Graduated compression elastic hosiery Consult Discharge Plan - Plan Referrals: Nkechi Torres, SLURRY MIXER [Primary Care Provider] -
[2017-01-20 08:14] LABS: Basophils # 0.1 K/mcL (0.0-0.2); Basophils % 0.4 %; Hemoglobin 13.9 g/dL (12.9-16.9); Immature Granulocytes % 6.1 % (0-4); Lymphocytes # 1.9 K/mcL (0.6-4.6); Lymphocytes % 14.2 %; Mean Corpuscular HGB Conc 36.6 g/dL (31.6-35.5); Mean Corpuscular Hemoglobin 29.4 pg (28.0-33.3); Mean Corpuscular Volume 80.5 fL (83.0-100.0); Mean Platelet Volume 9.3 fL (9.4-12.4); Monocytes # 1.1 K/mcL (0.0-1.3); Monocytes % 7.8 %; Neutrophils # 9.6 K/mcL (1.6-8.9); Nucleated Red Blood Cells 0.6 /100 WBC (0); Platelet Count 172 K/mcL (140-400); Red Blood Count 4.72 M/mcL (4.19-5.50); Red Cell Distribution Width 13.6 % (11.5-14.5); Segmented Neutrophils % 71.5 %
[2017-01-20] MEDS: *HR* GlipiZIDE XL (24 HR) 10 MG TABLET PO SCH (08:28)
[2017-01-20] MEDS: Aspirin Enteric Coated 81 MG Tablet PO SCH (08:29)
[2017-01-20] MEDS: Multivit/Ca/Min/Fe/FA 1 TAB TABLET PO SCH (08:29)
[2017-01-20] MEDS: Insulin LISPRO 300 UNITS/3 ML VIAL SQ SCH ×4 (08:30→22:55)
[2017-01-20] MEDS: Nystatin SUSP 5 ML UD.LIQ PO SCH ×3 (08:30→22:33)
[2017-01-20] MEDS: *HR* Metformin 500 MG TABLET PO SCH ×2 (08:30→17:50)
[2017-01-20] MEDS: Gentamicin OPTH Soln 5 ML BOTTLE BOTH EYES SCH ×4 (08:30→22:32)
[2017-01-20] MEDS: Magic Mouthwash 10 ML UD Cup PO SCH ×4 (08:31→22:41)
[2017-01-20] MEDS: Valsartan 160 MG TABLET PO SCH (08:32)
[2017-01-20 09:12] LABS: BUN/Creatinine Ratio 31 (6-26); Blood Urea Nitrogen 24 mg/dL (8-26); Calcium 8.9 mg/dL (8.6-10.8); Carbon Dioxide 27 mEq/L (19-29); Chloride 88 mEq/L (98-109); Glucose 299 mg/dL (70-99); Osmolality,Calculated 277 (280-300); Potassium 4.3 mEq/L (3.5-4.5); Sodium 126 mEq/L (136-145); eGFR For African Americans > 60 (> 60); eGFR For Non-African Americans > 60 (> 60)
[2017-01-20 09:42] LABS: Platelet Estimate Normal (Normal); Reactive Lymphocytes Present (Not Present)
[2017-01-20 09:43] LABS: Tear Drop Cells 2+ (Not Present)
[2017-01-20 09:44] LABS: Smudge Cells Present (Not Present)
[2017-01-20] MEDS: LevETIRAcetam 250 MG TABLET PO SCH ×2 (10:07→22:34)
--- NOTE | 2017-01-20 14:09 | Internal Med Progress Note ---
Date of Encounter: 01/20/17 Time of Encounter: 14:00 - Assessment and plan (1) Hyponatremia Current Visit: Yes Status: Chronic Assessment and plan: Still hyponatremic. 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 Chaney sodium actually dropped slightly BUN and creatinine. - Constitutional Vitals: Temp Pulse Resp BP Pulse Ox 98.2 F 79 16 120/84 95 01/19/17 18:50 01/19/17 18:50 01/19/17 18:50 01/19/17 18:50 01/19/17 18:50 General appearance: Present: cachectic, A&O X 3, pleasant - Head Head exam: Present: atraumatic, normal inspection, normocephalic - Neck Neck exam general surgery: Present: supple, trachea midline. Absent: lymphadenopathy - Respiratory Respiratory exam: Present: CTAB. Absent: accessory muscle use, rales, rhonchi, wheezes - Cardiovascular Cardiovascular exam: Present: RRR, +S1, +S2. Absent: diastolic murmur, gallop, rubs, systolic murmur Internal Medicine: Result - Labs CBC & Chem 7: 01/20/17 07:37 01/20/17 07:37 Labs: Short CBC 01/20/17 Range/Units 07:37 WBC 13.4 H (4.3-11.1) K/mcL Hgb 13.9 (12.9-16.9) g/dL Hct 38.0 (37.5-50.1) % Plt Count 172 (140-400) K/mcL Neutrophils # 9.6 H (1.6-8.9) K/mcL BMP 01/20/17 07:37 Sodium 126 L Potassium 4.3 Chloride 88 L Carbon Dioxide 27 BUN 24 Creatinine 0.77 Glucose 299 H Calcium 8.9 A BUN and creatinine are okay - VTE Documentation of Mechanical Device: Graduated compression elastic hosiery Consult Discharge Plan - Plan Referrals: Nkechi Torres, FINISH MOLDER [Primary Care Provider] - 01/24/17 9:00 am
[2017-01-20] MEDS ORDERED: Acetaminophen 325 MG TABLET PO PRN (17:23)
[2017-01-20] MEDS: Benzonatate 100 MG CAPSULE PO PRN (22:33)
[2017-01-20] MEDS: Ondansetron ODT 4 MG TAB.RAPDIS PO PRN (22:34)
[2017-01-20] MEDS: *HR* OxyCODONE/APAP 5/325 TABLET PO PRN (22:36)
[2017-01-21 07:41] VITALS: BP 163/99
[2017-01-21] MEDS: Insulin LISPRO 300 UNITS/3 ML VIAL SQ SCH ×2 (09:23→12:08)
[2017-01-21] MEDS: Nystatin SUSP 5 ML UD.LIQ PO SCH (09:23)
[2017-01-21] MEDS: LevETIRAcetam 250 MG TABLET PO SCH (09:24)
[2017-01-21] MEDS: *HR* Metformin 500 MG TABLET PO SCH (09:24)
[2017-01-21] MEDS: Multivit/Ca/Min/Fe/FA 1 TAB TABLET PO SCH (09:24)
[2017-01-21] MEDS: Aspirin Enteric Coated 81 MG Tablet PO SCH (09:25)
[2017-01-21] MEDS: Gentamicin OPTH Soln 5 ML BOTTLE BOTH EYES SCH ×2 (09:25→12:53)
[2017-01-21] MEDS: Valsartan 160 MG TABLET PO SCH (09:25)
[2017-01-21] MEDS: *HR* GlipiZIDE XL (24 HR) 10 MG TABLET PO SCH (09:25)
[2017-01-21] MEDS: Magic Mouthwash 10 ML UD Cup PO SCH ×2 (09:26→12:42)
--- NOTE | 2017-01-21 11:39 | Discharge Summary ---
Date of Encounter: 01/21/17 Time of Encounter: 12:00 - Discharge Diagnosis (1) Hyponatremia Priority: Secondary Status: Chronic (2) Dehydration Priority: Secondary Status: Acute (3) Astrocytoma brain tumor Priority: Primary Status: Acute - Discharge Medications Home Medications: Aspirin Enteric Coated [Aspirin EC] 81 mg PO DAILY 11/03/16 [History] GlipiZIDE [Glucotrol] 5 mg PO BIDWM 11/03/16 [History] Metformin HCl [Metformin HCl ER] 1,000 mg PO BID 11/03/16 [History] Pravastatin Sodium [Pravachol] 40 mg PO DAILY 11/03/16 [History] Carvedilol [Coreg] 25 mg PO BID 11/18/16 [History] Dexamethasone [Decadron] 6 mg PO BID 01/11/17 [History] GlipiZIDE [Glipizide ER] 20 mg PO DAILY 01/11/17 [History] Mupirocin [Bactroban Oint] 1 appl TP BID #1 tube 01/11/17 [Rx] Omeprazole [PriLOSEC] 20 mg PO DAILY 01/11/17 [History] Ondansetron [Zofran] 8 mg PO TID 01/11/17 [History] Citalopram Hydrobromide [Citalopram HBr] 10 mg PO DAILY 01/14/17 [History] LevETIRAcetam [Keppra] 750 mg PO BID 01/14/17 [History] Magic Mouthwash [Magic Mouthwash BLM] 5 ml PO QID 01/14/17 [History] Multivitamin [Multivitamins] 1 each PO DAILY 01/14/17 [History] Nystatin [Nystatin Suspension] 1 / PO Q8H 01/14/17 [History] OxyCODONE/APAP 5/325 [Percocet 5/325 MG] 1 - 2 each PO Q4HR PRN 01/14/17 [ History] Prochlorperazine Maleate [Compazine] 10 mg PO Q6HR PRN 01/14/17 [History] Sodium Chloride 1 gm PO BID 01/14/17 [History] Valsartan/Hydrochlorothiazide [Diovan Hct 160-25 mg Tablet] 1 each PO DAILY [History] Allergies/Adverse Reactions: Allergies No Known Allergies Allergy (Verified 01/14/17 23:17) Date of admission: 01/16/17 15:46 Primary care physician: Nkechi Torres Consults: 01/16/17 16:12 Consult to Occupational Therapy [CONS] Routine Comment: eval Consult to Physical Therapy [CONS] Routine Comment: eval Consult to Recreational Therapy [CONS] Routine Comment: Consult to Curriculum Designer [CONS] Routine Reason for SW Consult: d/c planning Discharging clinician: Tony Reyez Anticipated date of discharge: 01/21/17 - Patient Status Disposition: Home Health Service Condition: Fair Functional capacity at discharge: uses cane/walker Overall status at discharge: patient is not back to baseline - Discharge Instructions Instructions: Dehydration (DC), Hyponatremia (DC) Follow Up With: Nkechi Torres, PARK NATURALIST [Primary Care Provider] - 01/24/17 9:00 am - Diet and Activity Activity: ambulate only with your walker Interval History: Patient has an extensive astrocytoma cerebral hemispheres. Because of this he was crawling around unable to ambulate. He was placed into swaying and has done very well with PT OT. And TR. Hospital course: Mr. Chaney is a 51 year old male - Time Spent with Patient Total time spent providing and/or coordinating discharge services: Less than 30 minutes - Constitutional Vitals: Temp Pulse Resp BP Pulse Ox 97.1 F L 89 16 163/99 96 01/21/17 07:00 01/21/17 07:00 01/21/17 07:00 01/21/17 07:00 01/21/17 07:00 General appearance: Present: cachectic, A&O X 3, pleasant - Head Head exam: Present: atraumatic, normal inspection, normocephalic - Neck Neck exam general surgery: Present: supple, trachea midline. Absent: lymphadenopathy - Respiratory Respiratory exam: Present: CTAB. Absent: accessory muscle use, rales, rhonchi, wheezes - Cardiovascular Cardiovascular exam: Present: RRR, +S1, +S2. Absent: diastolic murmur, gallop, rubs, systolic murmur - VTE Documentation of Mechanical Device: Graduated compression elastic hosiery
--- NOTE | 2017-01-21 11:40 | Physician Discharge Referral ---
Home Health/Hosp Referral Info Transfer to: Home Health Provider in Charge Post Discharge: PCP - Diagnosis (1) Hyponatremia Priority: Secondary Status: Chronic (2) Dehydration Priority: Secondary Status: Acute (3) Astrocytoma brain tumor Priority: Primary Status: Acute - Respiratory Orders Smoking Cessation: Smoking cessation has been advised. For more information, call the [place] Tobacco Quit Line at 3-648-GYOS-NOW. - Services Needed Following services are medically necessary services: Nursing, Physical Therapy - Transfer Medications Home Medications: Aspirin Enteric Coated [Aspirin EC] 81 mg PO DAILY 11/03/16 [History] GlipiZIDE [Glucotrol] 5 mg PO BIDWM 11/03/16 [History] Metformin HCl [Metformin HCl ER] 1,000 mg PO BID 11/03/16 [History] Pravastatin Sodium [Pravachol] 40 mg PO DAILY 11/03/16 [History] Carvedilol [Coreg] 25 mg PO BID 11/18/16 [History] Dexamethasone [Decadron] 6 mg PO BID 01/11/17 [History] GlipiZIDE [Glipizide ER] 20 mg PO DAILY 01/11/17 [History] Mupirocin [Bactroban Oint] 1 appl TP BID #1 tube 01/11/17 [Rx] Omeprazole [PriLOSEC] 20 mg PO DAILY 01/11/17 [History] Ondansetron [Zofran] 8 mg PO TID 01/11/17 [History] Citalopram Hydrobromide [Citalopram HBr] 10 mg PO DAILY 01/14/17 [History] LevETIRAcetam [Keppra] 750 mg PO BID 01/14/17 [History] Magic Mouthwash [Magic Mouthwash BLM] 5 ml PO QID 01/14/17 [History] Multivitamin [Multivitamins] 1 each PO DAILY 01/14/17 [History] Nystatin [Nystatin Suspension] 1 / PO Q8H 01/14/17 [History] OxyCODONE/APAP 5/325 [Percocet 5/325 MG] 1 - 2 each PO Q4HR PRN 01/14/17 [ History] Prochlorperazine Maleate [Compazine] 10 mg PO Q6HR PRN 01/14/17 [History] Sodium Chloride 1 gm PO BID 01/14/17 [History] Valsartan/Hydrochlorothiazide [Diovan Hct 160-25 mg Tablet] 1 each PO DAILY [History] Allergies/Adverse Reactions: Allergies No Known Allergies Allergy (Verified 01/14/17 23:17) Certification: Further, I certify that my clinical findings support that this patient is homebound (i.e. absences from home require considerable and taxing effort and are for medical reasons or sikhism services or infrequently or short duration when for other reasons) because: Homebound Reason: Patient requires assistance of a person or device to safely leave home Attestation: My signature below is to certify that this patient is under my care and that I, or nurse practitioner, or a physician's plumber's assistant working with me, has a face-to -face encounter with this patient.
[2017-01-21] MEDS: Ondansetron ODT 4 MG TAB.RAPDIS PO PRN (12:42)
== END 2017-01-21 14:55 | disposition home health service (06) | DRG 945 ==
LOC: INPGRE 15:46
PROVIDERS: ADMIT Internal Medicine; ATTEND Internal Medicine